=== PATIENT | male | born 1980 | race Hispanic/Latino ===

== ENCOUNTER 2020-03-03 10:32 | Emergency (ER) | payer SELFPAY ==
[2020-03-03] MEDS ORDERED: Lidocaine 1% w/Epinephrine 1:100K 30 ML VIAL ONE (10:58)
[2020-03-03] MEDS ORDERED: Adacel (T-DAP) 0.5 ML SYRINGE ONE (11:12)
[2020-03-03] MEDS ORDERED: Acetaminophen 500 MG TAB ONE (11:15)
[2020-03-03] MEDS ORDERED: Lidocaine 1% (PF) 30 ML VIAL ONE (11:31)
--- NOTE | 2020-03-03 11:54 | RAD ---
RADIOGRAPH LEFT THIRD AND FOURTH DIGITS 3VIEWS: DATE: 03/03/2020 HISTORY: 40-year-old male status post acute traumatic injury to left fingers FINDINGS: There is no evidence of fracture or dislocation. There is no evidence of periostitis, permeative lesi on, osteolytic lesion, or osteoblastic lesion. The joint spaces are maintained without erosions or significant osteophytes. IMPRESSION: Normal third and fourth digits of left hand
--- NOTE | 2020-03-03 12:01 | CT ---
Exam: Head CT without contrast HISTORY: Trauma. Scalp laceration. COMPARISON: none FINDINGS: Hemorrhage: No intraparenchymal hemorrhage or extra-axial hematoma. Brain parenchyma: Cortical roman-white matter differentiation is preserved. No mass effect or midline shift. Basilar cisterns are patent. Ventricular system: Ventricles and sulci are patent and symmetric. Calvarium: Intact. Scalp: There are skin shon in the left frontal scalp Sinuses and mastoid air cells: Adequate aeration. IMPRESSION: No intracranial post traumatic sequelae.
[2020-03-03] MEDS ORDERED: Bacitracin 1 PK ONE (12:20)
== END 2020-03-03 13:00 | disposition home or self-care (01) ==
LOC: NAV ERS 10:32
DX: S01.01XA Laceration without foreign body of scalp, initial encounter (principal); S61.213A Laceration without foreign body of left middle finger without damage to nail, initial encounter; S61.215A Laceration without foreign body of left ring finger without damage to nail, initial encounter; Z23 Encounter for immunization; W31.9XXA Contact with unspecified machinery, initial encounter; Y99.0 Civilian activity done for income or pay
CPT/HCPCS: 12002; 70450; 90471; 90715; J2001

== ENCOUNTER 2020-03-15 15:19 | Emergency (ER) | payer SELFPAY | END 2020-03-15 15:56 | disposition home or self-care (01) | LOC: NAV ERS 15:19 | DX: S61.213D Laceration without foreign body of left middle finger without damage to nail, subsequent encounter (principal); S61.214D Laceration without foreign body of right ring finger without damage to nail, subsequent encounter ==